=== PATIENT | male | born 2000 | race Caucasian/White ===

== ENCOUNTER 2022-02-15 20:24 | Emergency (ER) | payer OTHER, SELFPAY ==
--- NOTE | ~2022-02-15 | XR_ITS ---
EXAMINATION: XR hip RT 2V w AP pelvis DATE: 02/15/2022 21:52 INDICATION: Right hip pain. Fall. TECHNIQUE: An anteroposterior view of the pelvis and 2 views of right hip were obtained. COMPARISON: None. FINDINGS: Bone alignment is normal. No fracture. Joint spaces are well maintained. IMPRESSION: 1. Normal pelvis and right hip. Reviewed, dictated and finalized at location A.
--- NOTE | ~2022-02-15 | CT_ITS ---
EXAMINATION: CT facial & cervical spine wo DATE: 02/16/2022 02:35 INDICATION: Head injury TECHNIQUE: Computed tomography (CT) of the maxillofacial region and cervical spine was performed with out intravenous contrast. The dose-length product (DLP) was 313.64 mGy-cm. Automated exposure control and iterative reconstruction technique were employed. COMPARISON: None FINDINGS: MAXILLOFACIAL CT: There is a right periorbital soft tissue hematoma. No facial fracture is identified. The facial soft tissues are otherwise unremarkable. The globes and orbits are normal. CERVICAL SPINE CT: There is reversal of normal cervical lordosis which may be due to muscular spasm. There is no fractur e, dislocation, or subluxation. The vertebral body heights, alignment, and intervertebral disc spaces are normal. The odontoid is intact. The prevertebral soft tissues are normal. IMPRESSION: 1. Right periorbital soft tissue hematoma without facial fracture identified. 2. No acute osseous abnormality of the cervical spine. Reviewed, dictated and finalized at location A.
--- NOTE | ~2022-02-15 | XR_ITS ---
EXAMINATION: XR hand RT min 3V DATE: 02/15/2022 21:53 INDICATION: Right hand pain. Fall. TECHNIQUE: 4 views of right hand were obtained. COMPARISON: None. FINDINGS: Bone alignment is normal. No fracture. Joint spaces are well maintained. IMPRESSION: 1. Normal right hand. Reviewed, dictated and finalized at location A. IMPRESSION: 1. Normal right hand.
--- NOTE | ~2022-02-15 | XR_ITS ---
EXAMINATION: XR knee RT 3V DATE: 02/15/2022 21:52 INDICATION: Right knee pain. TECHNIQUE: 3 views of right knee were obtained. COMPARISON: None. FINDINGS: Bone alignment is normal. No fracture. Joint spaces are well maintained. There is no knee j oint effusion. IMPRESSION: 1. Normal right knee. Reviewed, dictated and finalized at location A. IMPRESSION: 1. Normal right knee.
--- NOTE | ~2022-02-15 | CT_ITS ---
EXAMINATION: CT brain wo con INDICATION: Head injury COMPARISON: None TECHNIQUE: Standard unenhanced head CT. The dose-length product (DLP) was 681.00 mGy-cm. The mA was a djusted according to patient size. Iterative reconstruction technique was employed. FINDINGS: There is no intracranial hemorrhage, acute infarction, or abnormal mass lesion. The ventric les are normal. There is no abnormal mass effect or midline shift. The ramsey-white matter differentiat ion is normal. The basal cisterns are patent. There is a right periorbital soft tissue hematoma. The orbits are normal. The paranasal sinuses, mastoids and calvarium are normal. IMPRESSION: 1. Right periorbital soft tissue hematoma without acute intracranial abnormality. Reviewed, dictated and finalized at location A. IMPRESSION: 1. Right periorbital soft tissue hematoma without acute intracranial abnormalit y.
[2022-02-15 20:35] VITALS: BP 137/87; PULSE 88; RESP 18; TEMP 37.4; O2SAT 96
[2022-02-16 02:05] VITALS: BP 138/88; PULSE 80; RESP 20; TEMP 36.5; O2SAT 100
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
--- NOTE | 2022-02-16 02:13 | PC.NURSE ---
Patient in CT at this time.
[2022-02-16] MEDS: HYDROcodone/acetaminophen (*CRX) 5-325 MG TABLET 1 TAB PO (02:23)
[2022-02-16] MEDS: TETANUS,DIPHTHERIA,AC PERTUSSIS ADULT (0.5 ML) BOOSTRIX IM (02:23)
[2022-02-16 02:53] VITALS: TEMP 36.5
[2022-02-16 03:40] VITALS: BP 125/73; PULSE 73; RESP 17; TEMP 36.6; O2SAT 98
== END 2022-02-16 03:42 | disposition home or self-care (01) ==
PROVIDERS: Emergency Provider Emergency Medicine
DX: S01.111A Laceration without foreign body of right eyelid and periocular area, initial encounter (principal); Z23 Encounter for immunization; W01.0XXA Fall on same level from slipping, tripping and stumbling without subsequent striking against object, initial encounter; Y93.02 Activity, running
CPT/HCPCS: 12011; 70450; 70486; 72125; 73130; 73502; 73562; 90471; 90715; 99284; A9270

== ENCOUNTER 2022-03-18 17:08 | Emergency (ER) | payer OTHER, SELFPAY ==
[2022-03-18 17:17] VITALS: BP 117/45; PULSE 52; RESP 16; TEMP 38.1; O2SAT 100
--- NOTE | 2022-03-18 17:18 | ED.NAVMDI ---
HPI - Nausea/Vomiting/Diarrhea General Chief complaint: Nausea/Vomiting/Diarrhea Stated complaint: nausea, vomitting, shortness of breath Time Seen by Provider: 03/18/22 17:18 Source: patient and RN notes reviewed Mode of arrival: ambulatory Limitations: no limitations History of Present Illness HPI Narrative: 21-year-old male presented for complaint of nausea and vomiting for the last 10 hours. He has not been able to keep any food or liquids down. Endorses fever and intermittent generalized abdominal pain, and headache. Denies hematemesis or hematochezia, diarrhea or constipation. He is not boosted for COVID, has not had the flu vaccine. He endorses sick contact. Admits to recreational marijuana, denies other drug use. Related Data Home Medications Medication Instructions Recorded Confirmed buspirone [BuSpar] 5 mg PO BID 03/18/22 03/18/22 escitalopram oxalate [Lexapro] 10 mg PO DAILY 03/18/22 03/18/22 ramelteon 8 mg PO HS 03/18/22 03/18/22 Allergies Allergy/AdvReac Type Severity Reaction Status Date / Time No Known Allergies Allergy Verified 03/18/22 17:20 Review of Systems Review of Systems: CONSTITUTIONAL: Denies body aches, fever, chills EYES: Denies visual changes ENT: Denies rhinorrhea, congestion CARDIOVASCULAR: Denies chest pain, palpitations, or edema. RESPIRATORY: Denies cough or dyspnea. GASTROINTESTINAL: Endorses abdominal pain, nausea, vomiting, Denies hematochezia, melena, hematemesis GENITOURINARY: Denies dysuria, hematuria, or CVA tenderness. SKIN: Denies rash, itching, or wounds. MUSCULOSKELETAL: Denies back pain, joint pain, or myalgia. NEUROLOGIC: Denies headache, numbness, tingling, or weakness. PSYCH: Denies mood change All systems reviewed & are unremarkable except as noted in HPI and below PMFSH Past Medical History Medical History History of depression Social History Social History Substance use: current Substance use type: marijuana Comments At time of signature, I have reviewed and agree with nursing past medical, surgical, social and family history unless otherwise noted. Please see nursing chart for further information. There is no relevant family history pertinent to the presenting complaint Exam Narrative: GENERAL: ill-appearing no acute distress. HEAD: Normocephalic, atraumatic. EYES: EOMI. Conjunctivae normal. ENT: Mucous membranes pink and moist. NECK: Normal AROM. Supple. No lymphadenopathy. CHEST: No respiratory distress. Clear to auscultation. HEART: Regular rate and rhythm. No murmur appreciated. Normal peripheral pulses. ABDOMEN: Nontender abdomen, No guarding, rebound tenderness, asymmetry; abd soft, nondistended, normal active bowel sounds. MUSCULOSKELETAL: No bony tenderness. EXTREMITIES: Normal range of motion. No edema. SKIN: Petechiae to bilateral eyes; Healing right eyebrow laceration is oozing; Capillary refill normal. Normal skin turgor. NEURO: No focal deficits. Alert and oriented x3. Gait steady. PSYCH: flat affect. Course Course Emergency Course: Patient is aware of diagnosis, understands and agrees to treatment plan. Anticipatory guidance given. Patient agrees to follow-up as directed and is aware of reasons to seek care at the emergency department. Portions of this record may have been created with voice recognition software Level of Care: Express Care Visit Vital Signs Vital signs: Vital Signs Temperature 100.6 F H 03/18/22 17:17 Pulse Rate 52 L 03/18/22 17:17 Respiratory Rate 16 03/18/22 17:17 Blood Pressure 117/45 L 03/18/22 17:17 Pulse Oximetry 100 03/18/22 17:17 Temperature 100.6 F H 03/18/22 17:17 Pulse Rate 52 L 03/18/22 17:17 Respiratory Rate 16 03/18/22 17:17 Blood Pressure 117/45 L 03/18/22 17:17 Pulse Oximetry 100 03/18/22 17:17 MDM - Nausea/Vomiting/Diarrhea MDM Christos
[2022-03-18] MEDS: FAMOTIDINE 20 MG TABLET PO (17:34)
[2022-03-18] MEDS: ONDANSETRON HCL ODT 4 MG TABLET SUBLINGUAL (17:35)
== END 2022-03-18 18:15 | disposition home or self-care (01) ==
PROVIDERS: Emergency Provider Nurse Practitioner Family
DX: R11.2 Nausea with vomiting, unspecified (principal); Z20.822 Contact with and (suspected) exposure to COVID-19; F32.9 Major depressive disorder, single episode, unspecified
CPT/HCPCS: 87426; 87804; 99213; A9270; C9803; G0463